=== PATIENT | male | born 1980 | race Caucasian/White ===

== ENCOUNTER 2020-04-12 10:53 | Emergency (ER) | payer MEDICAID ==
[~2020-04-12] VITALS: Ht 175.3 cm; Wt 87.6 kg
[2020-04-12] MEDS ORDERED: ASPE16CR TOP (11:15)
[2020-04-12] MEDS ORDERED: LIDO5DIS41 TOP (11:15)
[2020-04-12] MEDS ORDERED: CYCLOBENZAPRINE 10MG TABLET PO ONE (12:15)
[2020-04-12] MEDS ORDERED: KETOROLAC 30 MG/ML 1ML VIAL IM ONE (12:15)
[2020-04-12] MEDS ORDERED: CYCL-707 PO (13:19)
[2020-04-12] MEDS ORDERED: KETO10TAB PO (13:19)
[2020-04-12 13:55] VITALS: BP 149/85
== END 2020-04-12 13:57 | disposition home or self-care (01) ==
LOC: M ED 10:53
DX: S39.012A Strain of muscle, fascia and tendon of lower back, initial encounter (principal); M54.40 Lumbago with sciatica, unspecified side; X50.1XXA Overexertion from prolonged static or awkward postures, initial encounter; Y92.89 Other specified places as the place of occurrence of the external cause; Y93.9 Activity, unspecified; Y99.0 Civilian activity done for income or pay
CPT/HCPCS: 96372; 99283; J1885

== ENCOUNTER 2022-05-04 15:43 | Emergency (ER) | payer MEDICAID, OTHER ==
[~2022-05-04] VITALS: Ht 175.3 cm; Wt 86.9 kg
[~2022-05-04 15:43] MED LIST: ASPE16CR TOP; CYCL-707 PO; KETO10TAB PO; LIDO5DIS41 TOP
[2022-05-04] MEDS ORDERED: ONDANSETRON 4MG 2ML VIAL IV ONE (16:20)
[2022-05-04] MEDS ORDERED: DICYCLOMINE 10 MG CAP PO ONE (16:20)
[2022-05-04] MEDS ORDERED: NS 1,000 ML IV ONE (16:20)
[2022-05-04 16:48] LABS: BASO % 0.4 % (0.0-1.0); EOS # 0.1 10^3/uL (0.0-0.5); EOS % 1.6 % (0.0-3.0); HEMATOCRIT 47.9 % (42.0-52.0); HEMOGLOBIN 16.7 g/dl (13.5-17.5); LYMPH # 1.2 10^3/uL (1.5-5.0); MEAN CORPUSCULAR HEMOGLOBIN 29.4 pg (27.0-33.0); MEAN CORPUSCULAR HGB CONC 34.9 g/dl (32.0-36.5); MEAN CORPUSCULAR VOLUME 84.3 fl (80.0-96.0); MONO # 0.8 10^3/uL (0.0-0.8); NEUTROPHILS # 5.4 10^3/uL (1.5-8.5); NEUTROPHILS % 70.5 % (36.0-66.0); PLATELET COUNT, AUTOMATED 167 10^3/uL (150-450); RED BLOOD COUNT 5.68 10^6/uL (4.30-6.10); WHITE BLOOD COUNT 7.6 10^3/uL (4.0-10.0)
[2022-05-04] MEDS ORDERED: ISOVUE-370 76% 100ML VIAL As Ordered ONE (17:18)
[2022-05-04 17:27] LABS: ALBUMIN 3.9 G/DL (3.2-5.2); BILIRUBIN,DIRECT 0.5 MG/DL (<0.4); BILIRUBIN,TOTAL 1.6 MG/DL (0.3-1.2); TOTAL PROTEIN 6.6 G/DL (5.7-8.2)
[2022-05-04 19:24] VITALS: BP 129/82
== END 2022-05-04 19:27 | disposition home or self-care (01) ==
LOC: M ED 15:43
DX: R53.83 Other fatigue (principal); R14.0 Abdominal distension (gaseous); I10 Essential (primary) hypertension; N20.0 Calculus of kidney; Z88.0 Allergy status to penicillin
CPT/HCPCS: 74177; 80047; 80076; 83690; 85025; 87428; 96361; 96374; 99284; J2405

== ENCOUNTER 2023-01-01 10:18 | Emergency (ER) | payer OTHER ==
[~2023-01-01] VITALS: Ht 175.3 cm; Wt 94.7 kg
[~2023-01-01 10:18] MED LIST changes: -ASPE16CR TOP; +LIDO76.52 TOP
[2023-01-01] MEDS ORDERED: AMOX875T2 PO (12:41)
[2023-01-01 12:44] VITALS: BP 135/89; TEMP 97.6; O2SAT 99
== END 2023-01-01 12:48 | disposition home or self-care (01) ==
LOC: M ED 10:18
DX: H66.91 Otitis media, unspecified, right ear (principal); I10 Essential (primary) hypertension; Z79.2 Long term (current) use of antibiotics

== ENCOUNTER 2023-03-18 11:58 | Emergency (ER) | payer OTHER ==
[~2023-03-18] VITALS: Ht 175.3 cm; Wt 96.7 kg
[~2023-03-18 11:58] MED LIST changes: +AMOX875T2 PO
[2023-03-18 12:00] VITALS: BP 159/97; TEMP 98.1; O2SAT 97
[2023-03-18] MEDS ORDERED: AMOX875T2 PO (14:03)
== END 2023-03-18 14:09 | disposition home or self-care (01) ==
LOC: M ED 11:58
DX: H66.92 Otitis media, unspecified, left ear (principal); I10 Essential (primary) hypertension; Z79.2 Long term (current) use of antibiotics

== ENCOUNTER 2023-07-04 09:09 | Emergency (ER) | payer OTHER ==
[~2023-07-04] VITALS: Ht 175.3 cm; Wt 94.4 kg
[2023-07-04] MEDS ORDERED: AMOX500C PO (09:43)
[2023-07-04 09:56] VITALS: BP 133/88; TEMP 97.5; O2SAT 97
== END 2023-07-04 09:57 | disposition home or self-care (01) ==
LOC: M ED 09:09
DX: H66.92 Otitis media, unspecified, left ear (principal); I10 Essential (primary) hypertension

== ENCOUNTER 2023-10-01 08:12 | Emergency (ER) | payer OTHER, SELFPAY ==
[~2023-10-01] VITALS: Ht 175.3 cm; Wt 92.8 kg
[2023-10-01 08:12] VITALS: BP 151/99; TEMP 97.4; O2SAT 97
[~2023-10-01 08:12] MED LIST changes: +AMOX500C PO
== END 2023-10-01 11:23 | disposition left against medical advice (07) ==
LOC: M ED 08:12
DX: Z53.21 Procedure and treatment not carried out due to patient leaving prior to being seen by health care provider (principal)